=== PATIENT | female | born 1975 | race Caucasian/White ===

== ENCOUNTER → 2019-01-27 | Outpatient (CLI) | payer OTHER ==
--- NOTE | 2019-01-27 09:38 | MM ---
Reason for exam: screening (asymptomatic). Baseline mammogram. History: Patient history of other cancer. Physical Findings: Nurse did not find any significant physical abnormalities on exam. MG 3D Screening Mammo W/Cad Bilateral CC and MLO view(s) were taken. The breast tissue is heterogeneously dense. This may lower the sensitivity of mammography. Asymmetric dense breast tissue prominent upper outer quadrant, MLO (). These results were verbally communicated with the patient and result sheet given to the patient on 01/27/19. ASSESSMENT: Incomplete: need additional imaging evaluation, BI-RAD 0 RECOMMENDATION: Ultrasound of the right breast.
--- NOTE | 2019-01-27 09:39 | USB ---
Reason for exam: additional evaluation requested from abnormal screening. History: Patient history of other cancer. Physical Findings: Breast exam preformed at baseline screening. US Breast Workup Limited RT Right limited breast ultrasound including focal area of concern, retroareolar and axilla demonstrates no cystic or solid lesion seen. These results were verbally communicated with the patient and result sheet given to the patient on 01/27/19. ASSESSMENT: Negative, BI-RAD 1 RECOMMENDATION: Return to routine screening mammogram schedule for both breasts.
== END | disposition home or self-care (01) ==
LOC: RADMAMWWP 08:11
PROVIDERS: ATTEND Internal Medicine
DX: Z12.31 Encounter for screening mammogram for malignant neoplasm of breast (principal); R92.8 Other abnormal and inconclusive findings on diagnostic imaging of breast
CPT/HCPCS: 77063; 77067

== ENCOUNTER → 2022-10-16 | Outpatient (CLI) | payer OTHER ==
--- NOTE | 2022-10-18 18:25 | MM ---
Reason for Exam: Screening (asymptomatic). Last mammogram was performed 3 year(s) and 8 month(s) ago. Patient History: Menarche at age 14. First Full-Term at age 24. Other cancer. Last menstrual period: 10/09/2022 Risk Values: Selina 5 year model risk: 0.7%. NCI Lifetime model risk: 8.6%. Prior Study Comparison: 01/27/2019 Bilateral Screening Mammogram, [facility]. Tissue Density: The breast tissue is heterogeneously dense. This may lower the sensitivity of mammography. Findings: Analyzed By CAD. Asymmetric density lateral anterior left cc view in mediolateral middle depth left cc view are unchanged. Additional asymmetric density lateral posterior right cc view is also unchanged. No significant change from prior exams. Overall Assessment: Benign, BI-RAD 2 Management: Screening Mammogram of both breasts in 1 year. 1. The patient would benefit from future 3-D mammogram screening. 2. Patient should continue monthly self breast exams. 3. This exam should not preclude additional follow-up of suspicious palpable abnormalities. Electronically signed and approved by: Vlad Camacho M.D. Radiologist
== END | disposition home or self-care (01) ==
LOC: RADMAMWWP 13:02
PROVIDERS: ATTEND Internal Medicine
DX: Z12.31 Encounter for screening mammogram for malignant neoplasm of breast (principal)
CPT/HCPCS: 77067

== ENCOUNTER → 2024-01-05 | Outpatient (CLI) | payer BC ==
--- NOTE | 2024-01-05 21:47 | XR ---
EXAMINATION TYPE: XR lumbosacral spine 5 views DATE OF EXAM: 01/05/2024 Comparison: None Clinical History: 48-year-old female [id number] LT SCIATICA Findings: Facet arthropathy lower lumbar spine with degenerative grade 1 anterolisthesis L4-L5. Mild degenerati ve disc disease in the visualized lower thoracic spine. Degenerative grade 1 retrolisthesis noted at T12-L1 and L1-L2. No pars interarticularis defect is seen. Stable line and surgical material left par amedian mid abdomen related to prior bowel surgery. Slight levoconvex curvature of the lumbar spine. Vertebral body heights are preserved. Impression: 1. 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 Facet arthropathy lower lumbar spine. 2. Degenerative grade 1 spondylolisthesis T12-L1, L1-L2, and L4-L5. 3. No vertebral compression collapse.
== END | disposition home or self-care (01) ==
LOC: RADXRYALE 10:51
PROVIDERS: ATTEND Internal Medicine
DX: M43.15 Spondylolisthesis, thoracolumbar region (principal); M47.26 Other spondylosis with radiculopathy, lumbar region; M43.25 Fusion of spine, thoracolumbar region; M51.14 Intervertebral disc disorders with radiculopathy, thoracic region
CPT/HCPCS: 72110

== ENCOUNTER → 2024-01-29 | Outpatient (CLI) | payer BC ==
--- NOTE | 2024-01-30 08:50 | MM ---
Reason for Exam: Screening (asymptomatic). Last mammogram was performed 1 year(s) and 4 month(s) ago. Patient History: Menarche at age 14. First Full-Term at age 24. Postmenopausal. Patient has history of breast feeding. Other cancer, age 47. Last menstrual period: 01/11/2024 Risk Values: Selina 5 year model risk: 0.8%. NCI Lifetime model risk: 8.5%. Prior Study Comparison: 01/27/2019 Bilateral Screening Mammogram, [facility]. 10/16/2022 Bilateral MG screening mammo w CAD, [facility]. Tissue Density: The breasts are heterogeneously dense, which may obscure small masses. Findings: Analyzed By CAD. There is no suspicious group of microcalcifications or new suspicious mass in either breast. Overall Assessment: Negative, BI-RAD 1 Management: Screening Mammogram of both breasts in 1 year. . Patient should continue monthly self-breast exams. A clinical breast exam by your physician is recommended on an annual basis. This exam should not preclude additional follow-up of suspicious palpable abnormalities. Note on Selina scores and lifetime risk: 1. A Selina score greater than 3% is considered moderate risk. If this is the case, consider specialist referral to assess eligibility for a risk reducing agent. 2. If overall lifetime risk for the development of breast cancer is 20% or higher, the patient may qualify for future screening with alternating mammogram and breast MRI. Electronically signed and approved by: Clem Morgan M.D. Radiologis
== END | disposition home or self-care (01) ==
LOC: RADMAMWWP 11:11
PROVIDERS: ATTEND Obstetrics & Gynecology
DX: Z12.31 Encounter for screening mammogram for malignant neoplasm of breast (principal); Z78.0 Asymptomatic menopausal state
CPT/HCPCS: 77063; 77067

== ENCOUNTER → 2025-01-31 | Outpatient (CLI) | payer OTHER ==
--- NOTE | 2025-01-31 12:02 | MM ---
Reason for Exam: Screening (asymptomatic). Last screening mammogram was performed 12 month(s) ago. Patient History: Menarche at age 14. First Full-Term at age 24. Postmenopausal. Patient has history of breast feeding. Other cancer, age 47. Risk Values: Selina 5 year model risk: 0.8%. NCI Lifetime model risk: 8.4%. Prior Study Comparison: 01/27/2019 Bilateral Screening Mammogram, [facility]. 10/16/2022 Bilateral MG screening mammo w CAD, [facility]. 01/29/2024 Bilateral MG 3D screening mammo w/cad, [facility]. Tissue Density: The breasts are heterogeneously dense, which may obscure small masses. Findings: Analyzed By CAD. There is no suspicious group of microcalcifications or new suspicious mass in either breast. Overall Assessment: Benign, BI-RAD 2 Management: Screening Mammogram of both breasts in 1 year. . Patient should continue monthly self-breast exams. A clinical breast exam by your physician is recommended on an annual basis. This exam should not preclude additional follow-up of suspicious palpable abnormalities. Note on Selina scores and lifetime risk: 1. A Selina score greater than 3% is considered moderate risk. If this is the case, consider specialist referral to assess eligibility for a risk reducing agent. 2. If overall lifetime risk for the development of breast cancer is 20% or higher, the patient may qualify for future screening with alternating mammogram and breast MRI. [facility], , 01/31/2025 12:00 PM. Electronically signed and approved by: Clem Morgan M.D. Radiologis
[2025-01-31 16:00] LABS: BUN/Creat Ratio 17.25 Ratio (12.00-20.00); Blood Urea Nitrogen 13.8 mg/dL (9.0-27.0); Chol/HDL Ratio 2.79 Ratio; Glucose 82 mg/dL (70-110); LDL Cholesterol,Calculated 86.1 mg/dL (0.0-131.0); VLDL Calculation 19.24 mg/dL (5.00-40.00)
[2025-01-31 16:01] LABS: ALT 10 U/L (8-44); AST 16 U/L (13-35); Albumin 4.2 g/dL (3.8-4.9); Albumin/Globulin Ratio 1.62 Ratio (1.60-3.17); Alkaline Phosphatase 59 U/L (41-126); Calcium 9.5 mg/dL (8.7-10.3); Carbon Dioxide 25.9 mmol/L (21.6-31.8); Chloride 102 mmol/L (96-109); Globulin 2.6 g/dL (1.6-3.3); Potassium 4.1 mmol/L (3.5-5.5); Sodium 139 mmol/L (135-145); Total Bilirubin 0.6 mg/dL (0.3-1.2); Total Protein 6.8 g/dL (6.2-8.2)
[2025-01-31 16:24] LABS: HCT 39.6 % (37.2-46.3); HGB 12.2 g/dL (12.0-15.0); MCH 27.6 pg (27.0-32.0); MCHC 30.8 g/dL (32.0-37.0); MCV 89.6 FL (80.0-97.0); Mean Platelet Volume 10.7 FL (9.5-12.2); NRBC Per 100 WBC 0 X 10*3/uL (0.00-0.01); Platelet Count 344 X 10*3/uL (140-440); RBC 4.42 X 10*6/uL (4.10-5.20); RDW 12.3 % (11.5-14.5); WBC 7.95 X 10*3/uL (4.50-10.00)
[2025-01-31 16:25] LABS: Basophils # (A) 0.02 X 10*3/uL (0.00-0.10); Basophils % (A) 0.3 %; Eosinophils # (A) 0.04 X 10*3/uL (0.04-0.35); Eosinophils % (A) 0.5 %; Lymphocytes # (A) 1.84 X 10*3/uL (0.90-5.00); Lymphocytes % (A) 23.1 %; Monocytes # (A) 0.29 X 10*3/uL (0.20-1.00); Monocytes % (A) 3.6 %; Neutrophils # (A) 5.74 X 10*3/uL (1.80-7.70); Neutrophils % (A) 72.2 %
== END | disposition home or self-care (01) ==
LOC: RADMAMWWP 10:28
PROVIDERS: ATTEND Internal Medicine
DX: Z12.31 Encounter for screening mammogram for malignant neoplasm of breast (principal); Z00.01 Encounter for general adult medical examination with abnormal findings; R53.83 Other fatigue; R92.333 Mammographic heterogeneous density, bilateral breasts; Z13.220 Encounter for screening for lipoid disorders; E55.9 Vitamin D deficiency, unspecified; Z78.0 Asymptomatic menopausal state
CPT/HCPCS: 77063; 77067; 80053; 80061; 82306; 84443; 85025